=== PATIENT | male | born 1975 ===

== ENCOUNTER 2016-12-30 08:44 | Day surgery (SDC) | payer SELFPAY ==
[2016-12-30] MEDS ORDERED: Lactated Ringer's 1,000 ML IV ONE (12:20)
[2016-12-30] MEDS ORDERED: Propofol 10 mg/ml Inj (20 ML) ONE (12:24)
[2016-12-30] MEDS ORDERED: Lactated Ringer's 500 ML IV SCH (12:30)
[2016-12-30 13:20] VITALS: TEMP 97.8; O2SAT 100
[2016-12-30 14:13] VITALS: BP 110/70; PULSE 75; RESP 11
== END 2016-12-30 14:25 | disposition home or self-care (01) ==
LOC: C.ENDO 08:44
PROVIDERS: ATTEND Internal Medicine Gastroenterology
DX: K52.9 Noninfective gastroenteritis and colitis, unspecified (principal); K62.5 Hemorrhage of anus and rectum; R19.5 Other fecal abnormalities; K64.8 Other hemorrhoids
CPT/HCPCS: 45380; 88305; J2704; J7120